=== PATIENT | male | born 1960 | race Caucasian/White ===

== ENCOUNTER 2019-01-17 12:46 | Day surgery (SDC) | payer BC ==
[2019-01-17] MEDS ORDERED: PROPOFOL 200 MG INJ (16:00)
[2019-01-17] MEDS ORDERED: LIDOCAINE 2% (SDV) 5 ML INJ (16:10)
[2019-01-17] MEDS ORDERED: PROPOFOL 40 ML (16:10)
[2019-01-17] MEDS ORDERED: FENTAnyl 50 MCG/ML VIAL IV (17:00)
== END 2019-01-17 16:55 | disposition home or self-care (01) ==
LOC: GIL 12:46
DX: Z12.11 Encounter for screening for malignant neoplasm of colon (principal); K64.8 Other hemorrhoids
CPT/HCPCS: 45378